=== PATIENT | male | born 1950 | race African-American/Black ===

== ENCOUNTER → 2018-09-23 | Outpatient (CLI) | payer OTHER, MEDICARE | LOC: BHFA 09:00 | PROVIDERS: ATTEND Internal Medicine | DX: R94.31 Abnormal electrocardiogram [ECG] [EKG] (principal); E78.5 Hyperlipidemia, unspecified ==

== ENCOUNTER 2018-11-02 08:27 | Day surgery (SDC) | payer OTHER, MEDICARE ==
[2018-11-02] MEDS ORDERED: diphenhydrAMINE 25 MG CAP PO ONE (08:30)
[2018-11-02] MEDS ORDERED: ASPIRIN EC 325 MG TAB PO ONE (08:30)
[2018-11-02] MEDS ORDERED: FAMOTIDINE 20 MG TAB PO ONE (08:30)
[2018-11-02] MEDS ORDERED: NS 1,000 ML IV ONE (08:30)
[2018-11-02] MEDS ORDERED: DIAZEPAM 5 MG TAB PO ONE (08:30)
[2018-11-02 09:13] LABS: PLATELET COUNT 192 10^3/uL (150-400)
[2018-11-02 09:21] LABS: INR 1.03 (0.83-1.16); PROTIME(PATIENT) 13.7 SEC (12.0-15.0)
[2018-11-02] MEDS ORDERED: fentaNYL 100 MCG/2 ML INJ ONE (10:11)
[2018-11-02] MEDS ORDERED: LIDOCAINE 1% 300 MG/30 ML SDV ONE (10:11)
[2018-11-02] MEDS ORDERED: IOPAMIDOL (ISOVUE-370) 150 ML BTL IV ONE (10:12)
[2018-11-02] MEDS ORDERED: MIDAZOLAM 2 MG/2 ML VIAL ONE (10:12)
--- NOTE | 2018-11-02 10:49 | PDHPUP ---
History & Physical Update H&P update statement: This history and physical update is based on an assessment of the patient which was completed after admission or registration (within 24 hours), but prior to the surgery/procedure. H&P update: H&P reviewed & patient examined, no change in patient's condition since H&P completed
--- NOTE | 2018-11-02 10:49 | PDPROPOC ---
Sedation Plan of Care Sedation Plan of Care: vital signs stable, mental status noted, patient educated of risks, benefits, alternatives, patient can tolerate sedation ASA Classification: ASA 2 Planned drugs: fentanyl, midazolam Mallampati Score: Class 2 Mallampati Reference Image: Patient passed 3-3-2 rule?: Yes
[2018-11-02] MEDS ORDERED: ATROPINE SULFATE 1 MG/10 ML SYR IVP PRN (11:47)
[2018-11-02] MEDS ORDERED: ONDANSETRON 4 MG/2 ML VIAL IVP PRN (11:47)
[2018-11-02] MEDS ORDERED: OXYCODONE/APAP 5/325 TAB PO PRN (11:47)
[2018-11-02] MEDS ORDERED: NITROGLYCERIN 0.4 MG BTL SL PRN (11:47)
[2018-11-02] MEDS ORDERED: HYDROCODONE/APAP 5/325 TAB PO PRN (11:47)
--- NOTE | 2018-11-02 11:47 | PDDXCAT ---
Diagnostic Cath Note - . Date: 11/02/18 [employer]: Meg Indication: other (moderate risk MPI. Abnl ECG. HTN) - Procedure Access: right groin Procedure: left heart catheterization, coronary angiography - Materials Left Heart Cath size: 6F Left Heart Cath materials: standard multipack (JL4, JR4, pigtail) - Findings-Left Heart Catheterization LM: Normal. Bifurcates into LAD and LCx LAD: Normal. 2 small diagonals without CAD LCX: Normal. one large OM. No CAD RCA: Normal. Dominant EDP: 16 - Findings-Right Heart Catheterization AO: 141/84. No Complications: none Estimated blood loss: <50ml Closure method: Angioseal Assessment: Normal coronary arteries. Systemic HTN Plan: Continue medical management and lifestyle modification
--- NOTE | 2018-11-03 06:10 | CPEKG ---
Test Reason : OPEN Blood Pressure : / mmHG Vent. Rate : 074 BPM Atrial Rate : 075 BPM P-R Int : 175 ms QRS Dur : 085 ms QT Int : 366 ms P-R-T Axes : 057 065 -42 degrees QTc Int : 406 ms Sinus rhythm Abnormal R-wave progression, early transition Confirmed by Donato Perkins ([id number]) on 11/03/2018 6:09:34 AM Referred By: Confirmed By:Donato Perkins
== END 2018-11-02 15:31 | disposition home or self-care (01) ==
LOC: FCATH 08:27
PROVIDERS: ATTEND Internal Medicine Cardiovascular Disease
DX: R94.39 Abnormal result of other cardiovascular function study (principal); I10 Essential (primary) hypertension; R06.02 Shortness of breath; E78.5 Hyperlipidemia, unspecified; M10.9 Gout, unspecified; R73.01 Impaired fasting glucose; L40.9 Psoriasis, unspecified; Z79.82 Long term (current) use of aspirin; Z82.49 Family history of ischemic heart disease and other diseases of the circulatory system
CPT/HCPCS: C1760; J1644; J2250; J3010; Q9967